=== PATIENT | female | born 1950 | race Caucasian/White ===

== ENCOUNTER 2025-04-21 14:01 | Outpatient (AMB) | payer MEDICARE, SELFPAY ==
[2025-04-21 14:22] VITALS: BMI 28.3
--- NOTE | 2025-04-21 14:22 | HO.SPINEOV ---
Vital Signs 04/21/25 14:22 Height 5 ft 3 in Weight 160 lb BMI 28.3 Intake Visit Reasons: spinal stenosis Intake Note: Mrs. Healy is here today c/o Low back pain. [employer] Required: No Allergies No Known Allergies Allergy (Verified 04/21/25 14:23) Physical Exam Vital Signs: BMI result Body Mass Index 28.3 Assessment & Plan Assessment & Plan (1) Lumbar stenosis: Code(s): M48.061 - Spinal stenosis, lumbar region without neurogenic claudication Category: Medical Plan Dear Dr Julieth Romero, Thank you for referring Mrs Healy to our office today. She is a very nice 75-year-old female history of osteoporosis, who presents today for evaluation of a lower lumbar sacral pain which radiates out to her hips and down toward her tailbone. The pain is aggravated when going from a sitting to a standing position, or walking for any distance it will make her have to stop and sit down. She has not have any specific radicular pain into the hamstrings, calves or thighs but it is very mechanical in nature with standing and bearing weight, and improves when she sits. She walks a trail and she will have to coordinate where she is going to sit down because after a number of minutes the pain will become intense in forced her to get off her feet. She started physical therapy and ultimately went for few months but did not see any significant improvement. She has been doing injections with Dr. Upton for many years. These have become less effective. From the [facility] records it looks like he has been doing bilateral L4 TFE's. She has taken anti-inflammatories, Tylenol, and even oxycodone. She does not want to be on medication. This is very frustrating to her. She has had an MRI done at [facility] showing severe stenosis at L4-5 amongst other things and was sent today to see us for an evaluation. PMH: She is reasonably healthy for her age, history of osteoporosis, vertigo, an episode of transient global amnesia at 1 point and a left knee replacement. But other than that no systemic disease in the cardiopulmonary, liver, renal, coagulopathies, endocrine system etc.. No major abdominal surgeries. Social hx: She has not smoke, drink use any recreational drugs Medications: Celebrex Allergies: None Physical exam: Awake alert oriented no acute distress, she is able to stand and walk, slightly unsteady on her feet, strength normal, absent patellar reflexes in the left side where she had a knee replacement but otherwise reflexes are normal Imaging review: Lumbar MRI at [facility] shows that she has advanced degenerative disc disease at L2-3, L3-4 and L4-5, with severe stenosis at L4-5. Impression: 75-year-old female presents for issues with low back pain radiating down into her lumbosacral area, into her hips, associated with standing, bending or walking for any length of time. When she gets on her feet too long she will have to sit down the make the symptoms go away. She has been treated conservatively as above and the only thing that worked were injections done by Dr. Upton, by the records it looks like she had L4 TFE done multiple times and the last few just seemed to stop working. Previous to that they were helping her out quite a bit. Because of the claudicating component, I think her symptoms are coming from the L4-5 stenosis. I am going to get a set of standing flexion-extension x-rays just to rule out any instability given the pain that does come with bending at the waist. I think Dr. King would offer her an L4-5 decompression with the understanding that it will likely significantly help her symptoms, but she does have degenerative disc disease from L2-L5 as well and that could be contributing somewhat to her back pain. Because of her osteoporosis, I am not sure if he would consider a fusion. If we could do something less invasive for her that would give her improvement in her walking I think she would find that a reasonable outcome. Once I have a chance to review everything with Dr. King I will get back to the patient with a final plan. She does have a trip coming up to [facility] and has used steroids in the past to get through the vacation and allow her to walk. I called a prescription for Medrol Dosepak for her. She is on omeprazole for PPI prophylaxis. Thank you for allowing us to care for your patient. The total time spent with this visit with this patient was 45 minutes reviewing history, physical exam, lumbar imaging review, and implementation of treatment plan or further diagnostic testing Gerard King MD,PhD [facility] Orders: Orders XR lumbar spine 4V min Today M48.061 - Spinal stenosis, lumbar region without neurogenic claudication Medications: New methylprednisolone medrol dose pack, take as directed on package 4 mg PO DAILY 21 ea 0RF Coding Level of Care Code New Pt Level 4 (42960) Diagnoses Lumbar stenosis M48.061
== END 2025-04-21 15:28 | disposition home or self-care (01) ==
LOC: HO.HNS 14:02
PROVIDERS: PCP Internal Medicine; Referring Provider Internal Medicine; Visit Provider Physician Assistant
DX: M48.061 Spinal stenosis, lumbar region without neurogenic claudication (principal)
CPT/HCPCS: 99204

== ENCOUNTER 2025-04-21 14:01 | Outpatient (REF) | payer MEDICARE, SELFPAY ==
--- NOTE | ~2025-04-21 | XR_ITS ---
CLINICAL HISTORY: M48.061 - Spinal stenosis, lumbar region without neurogenic claudication --- Additional Notes or Special Instructions: standing, a p, lateral with flex ext views 4 views lumbar spine Comparison: None Findings: 5 nonrib-bearing lumbar type vertebral bodies. Mild levoconvex curvature of the lumbar spine, no spondylolisthesis or dislocation. No abnormal motion on the flexion or extension view. No acute fracture. Multilevel vertebral osteophytes, mild disc height loss L1-2 to L4-5. Facet arthrosis L4-5 and L5-S1. Sacroiliac joints are unremarkable. Visualized abdomen and pelvis demonstrate nothing unusual. Impression: 1. Lumbar spine degenerative spondylosis. This document has been electronically signed by: Radha Edwards MD on 04/22/2025 14:11:39
== END 2025-04-21 14:02 | disposition home or self-care (01) ==
LOC: HO.HOSX 14:01
PROVIDERS: PCP Internal Medicine; Referring Provider Internal Medicine; Visit Provider Physician Assistant
DX: M48.061 Spinal stenosis, lumbar region without neurogenic claudication (principal)
CPT/HCPCS: 72110; 99202

== ENCOUNTER → 2025-04-21 15:02 | Outpatient (BNV) | payer MEDICARE, SELFPAY | PROVIDERS: PCP Internal Medicine; Referring Provider Internal Medicine; Visit Provider Radiology Diagnostic Radiology | DX: M48.061 Spinal stenosis, lumbar region without neurogenic claudication (principal); M47.816 Spondylosis without myelopathy or radiculopathy, lumbar region | CPT/HCPCS: 72110 ==

== ENCOUNTER 2025-06-11 14:57 | Outpatient (AMB) | payer MEDICARE, SELFPAY ==
--- NOTE | 2025-06-11 14:59 | A.SPINEOV_ITS ---
Intake Visit Reasons: Meet Dr.P SMITH 06/19 & questions regarding recovery Intake Note: Ms. Healy is here today to Discuss Surgery and Meet Dr. King. Business Services Associate Required: No Allergies tolterodine Allergy (Verified 06/11/25 15:00) Unknown zolpidem Allergy (Verified 06/11/25 15:00) Unknown Assessment & Plan Assessment & Plan (1) Lumbar stenosis: Code(s): M48.061 - Spinal stenosis, lumbar region without neurogenic claudication Category: Medical Plan On 06/11/2025, I saw for preoperative visit Nadine Healy to discuss her upcoming L4-5 decompression. She had additional questions about the surgery and expected postoperative recovery. All questions were answered satisfactorily. Answering questions. Kelvin King MD, PhD Spine Fellowship Trained Neurosurgeon Director, [facility] Coding Level of Care Code Est Pt Level 2 (89040) Diagnoses Lumbar stenosis M48.061
--- OUTSIDE RECORDS SUMMARY | 2025-06-11 18:18 | XMS_ITS | Data Portability ---
Author Organization 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 She also has an early diagnosis of Dupuytren's or pseudo Dupuytren's disease. Plan: Pathophysiology of each of these problems has been reviewed. Cortisone injection was performed to the CMC joint. She is provided a prescription for modality splint. The patient is ambulatory, but has weakness and/or instability of their extremity which requires stabilization from this semi-rigid/rigid orthosis to improve their function. Verbal and written instructions for their use and application of this item were given. patient was instructed that should the brace result in increased pain, decreased sensation, increased swelling or an overall worsening of their medical condition, to please contact our office immediately. [email or web address] Not available 11/10/2023 17:00:49 Plan of Treatment Reminders Order Date Submit Date Provider Last Modified By Organization Details Last Modified Time Details Appointments None record ed. Lab ESR (eryth rocyte sedime ntatio n rate), blood - LTKR, ? Infect ion 2024 025 [email or web address] [facility] (Centralized Electronic Ordering - All Locations), Patient Can Go To The Location Of Their Choice, [id number] 11:04:06 C reacti ve protei n, QN, serum or plasma - LTKR, ? Infect ion 2024 025 [email or web address] [facility] (Centralized Electronic Ordering - All Locations), Patient Can Go To The Location Of Their Choice, [address] 5 11:04:06 CBC w/ auto diff - LTKR, ? Infect ion 2024 025 [email or web address] [facility] (Centralized Electronic Ordering - All Locations), Patient Can Go To The Location Of Their Choice, [id number] 5 11:04:06 Referral None record ed. Procedures None record ed. Surgeries None record ed. Imaging XR, knee, 3 view - LTKR 2022, Se , room 116 2024 025 [email or web address] [facility], [address], [address], [place], [address], 5 11:04:06 XR, hand, 3 or more view - 3 views right hand to includ e wrist room 113 2023 024 [email or web address] Not available 4 13:13:21 XR, hand, 3 or more view - 3views right hand to includ e wrist [email or web address] [facility], [address], [address], [place], [address], 4 14:12:17 Medication Orders None record ed. Patient TargetsNo targets recorded. Patient InstructionsNo instructions recorded. Reason for Referral None Reported. Results Created Date Observation Date Name Description Value Unit Range Abnormal Flag Note LastModifiedBy Organization Detail LastModifiedTime 03/30/20 24 12/28/2021 imagi ng/di agnos tic resul t No observ ation record ed. [email or web address] Not Available 03/02 03:57:56 03/30/20 24 02/09/2022 imagi ng/di agnos tic resul t No observ ation record ed. [email or web address] Not Available 03/02 03:58:02 03/30/20 24 05/30/2023 imagi ng/di agnos tic resul t No observ ation record ed. [email or web address] Not Available 03/02 03:58:35 03/30/20 24 12/19/2018 imagi ng/di agnos tic resul t No observ ation record ed. [email or web address] Not Available 03/02 03:59:33 02/07/20 25 02/06/2025 XR, knee, 3 view [email or web address] ?Encry pted=s hAaTro YD8dLq bEUv6g %2BXZw aYqtaq 0bqfl% 2Fg9IQ a4ajBk vP9nXo QUaueC m3YtLR FvZlgJ JJ8mAn HZtai3 2n4624 AC0Kla XiAUae uKiQtr MwF INTERFACE [facility] [address] [facility] [address], [address], 02/06/2025 14:22:15 02/07/20 25 02/06/2025 XR, knee, 3 view [email or web address] ?Encry pted=s hAaTro YD8dLq bEUv6g %2BXZw aYqtaq 0bqfl% 2Fg9IQ a4ajBk vP9nXo QUaueC m3YtLR FvZlgJ JJ8mAn HZtai3 9h8798 AC0Kla XiAUae uKiQtr MwF INTERFACE [facility] [address] [facility] [address], [place], [address], 02/06/2025 14:22:17 Result Notes Documentation Provider Name and Address Organization Details Recorded Time Xr, Knee, 3 View : [email or web address] Encrypted=laMrVgvTR0pEcoZ Uv6g%5HOVxiOpdzb1poup%2Fg 3EXo3vxFdxW5lHpCBrvhIs5Yz MDQvTddAGH4eQrXUdet36i238 2QA2CyrLeYVhxyJlJqaTmV Not Available [facility] 02/06/2025 14:22: 16 Xr, Knee, 3 View : [email or web address] Encrypted=grSqPpfQX3cZrbA Uv6g%6JXXcxOpczl8ujam%2Fg 9IPj6xhBeiH7sJgFCfjcOk0Tj BJHcOcgKBJ5oOcUEoxl66x515 7TK8ApkIwODgvnAbLegVzJ Not Available [facility] 02/06/2025 14:22: 18 Problems Name Problem SNOMED Code Status Onset Date Resolution Date Notes Provider Name and Address Organization Details Recorded Time No complaints 876273769 Active Status : 'A'; Not Available [facility] 4 09:20:46 Pain of knee region 2120347718 Active 2024 Suellen Landis PA-C [address], [place], [address] , [facility] 5 14:55:57 Problem Notes None recorded. Procedures Surgical History Date Name Laterality Status Provider Name and Address Organization Details Recorded Time 4 Wrist Joint Kenalog Injection, L/R completed Chacha Kennedy MD [address], [place], [address], [facility] 11/10/2023 16:59:48 Imaging Results None recorded. Procedure Notes None recorded. Medical Equipment None Reported. Allergies No known drug allergies Medications Name Sig Start Date Stop Date Status Note LastModified by Organization Details LastModified Time celecoxib 200 mg capsule TAKE 1 CAPSULE BY MOUTH EVERY DAY active Not Available Not Available No t Available amoxicillin 500 mg capsule TAKE 4 CAPSULES BY MOUTH 1 HOUR BEFORE DENTAL APPOINTMENT active Not Available Not Available Not Available latanoprost 0.005 % eye drops INSTILL 1 DROP INTO LEFT EYE AT SUPPERTIME active Not Available Not Available N ot Available ammonium lactate 12 % lotion APPLY TO ARMS AND LEGS AFTER SHOWER 1-2 TIMES A DAY active Not Available Not Available Not Available citalopram 40 mg tablet active Not Available Not Available Not Available trazodone 50 mg tablet TAKE 1/2 TO 1 TABLET BY MOUTH AT BEDTIME NEEDED FOR SLEEP active Not Available Not Available No t Available ibuprofen 800 mg tablet TAKE 1 TABLET BY MOUTH EVERY 6 - 8 HOURS NEEDED FOR PAIN. MAX OF 3200MG IBUPROFEN PER DAY. active Not Available Not Available No t Available fluconazole 150 mg tablet TAKE 1 TABLET BY MOUTH EVERY DAY SHELLY YEAST INFECTION WHEN SYMPTOMS PRESENT active Not Available Not Available No t Available citalopram 10 mg tablet TAKE 1 TABLET BY MOUTH DAILY active Not Available Not Available Not Available senna 8.6 mg tablet TAKE 1 TABLET BY MOUTH TWICE DAILY active Not Available Not Available No t Available meloxicam 15 mg tablet TAKE 1 TABLET BY MOUTH EVERY DAY active Not Available Not Available No t Available metronidazol e 0.75 % (37.5 mg/5 gram) vaginal gel INSERT 1 APPLICATORF UL VAGINALLY EVERY DAY AT BEDTIME FOR 5 DAYS active Not Available Not Available N ot Available ondansetron HCl 4 mg tablet TAKE 1 TABLET BY MOUTH EVERY 8 HOURS NEEDED FOR NAUSEA OR VOMITING active Not Available Not Available No t Available doxepin 10 mg capsule TAKE 1 CAPSULE BY MOUTH EVERY NIGHT AT BEDTIME active Not Available Not Available No t Available ciprofloxaci n 500 mg tablet TAKE 1 TABLET BY MOUTH TWICE DAILY FOR 10 DAYS active Not Available Not Available No t Available tramadol 50 mg tablet TAKE 1 TABLET BY MOUTH FOUR TIMES DAILY FOR 7 DAYS active Not Available Not Available N ot Available ketorolac 0.5 % eye drops INSTILL 1 DROP IN OPERATIVE EYE TWICE DAILY STARTING AFTER SURGERY active Not Available Not Available No t Available oxycodone-ac etaminophen 5 mg-325 mg tablet TAKE 1 TAB(S) ORALLY EVERY 6 HOURS active Not Available Not Available No t Available calcium 600 mg (as calcium carbonate 1,500 mg) tablet TAKE 1 TABLET BY MOUTH TWICE DAILY active Not Available Not Available No t Available hydromorphon e 2 mg tablet TAKE 1 TABLET BY MOUTH EVERY 6 HOURS NEEDED FOR PAIN active Not Available Not Available No t Available lorazepam 0.5 mg tablet TAKE 1 TABLET BY MOUTH TWICE DAILY NEEDED FOR ANXIETY active Not Available Not Available No t Available aspirin 325 mg tablet,delay ed release active Not Available Not Available N ot Available pantoprazole 40 mg tablet,delay ed release active Not Available Not Available N ot Available triamcinolon e acetonide 0.025 % topical ointment active Not Available Not Available Not Available docusate sodium 100 mg capsule active Not Available Not Available N ot Available omeprazole 20 mg capsule,judy yed release active Not Available Not Available Not Available montelukast 10 mg tablet TAKE 1 TABLET BY MOUTH AT BEDTIME active Not Available Not Available No t Available hydroxyzine HCl 25 mg tablet TAKE 1 TABLET BY MOUTH EVERY NIGHT AT BEDTIME NEEDED FOR ITCHING active Not Available Not Available No t Available ergocalcifer ol (vitamin D2) 1,250 mcg (50,000 unit) capsule TAKE 1 CAPSULE BY MOUTH 1 TIME A WEEK FOR 12 WEEKS active Not Available Not Available No t Available diazepam 10 mg tablet TAKE 1 TABLET BY MOUTH 1 HOUR BEFORE PROCEDURE DIRECTED. AVOID DRIVING / OPERATING HEAVY MACHINERY active Not Available Not Available No t Available polyethylene glycol 3350 17 gram/dose oral powder active Not Available Not Available Not Available estradiol 0.01% (0.1 mg/gram) vaginal cream USE 1 GRAM INTRAVAGINA LLY 2 TIMES A WEEK active Not Available Not Available No t Available ondansetron 4 mg disintegrati ng tablet DISSOLVE 1 TABLET ON THE TONGUE EVERY 8 HOURS NEEDED FOR NAUSEA active Not Available Not Available No t Available fluticasone propionate 50 mcg/actuatio n nasal spray,suspen vidhya SHAKE LIQUID AND USE 2 SPRAYS IN EACH NOSTRIL TWICE DAILY NEEDED FOR RHINITIS active Not Available Not Available No t Available diazepam 5 mg tablet TAKE 1-2 TABLETS BY MOUTH 1 HOUR PRIOR TO PROCEDURE active Not Available Not Available No t Available amoxicillin 875 mg-potassium clavulanate 125 mg tablet TAKE 1 TABLET BY MOUTH EVERY 12 HOURS UNTIL FINISHED. active Not Available Not Available No t Available oxycodone 5 mg tablet TAKE 1 TO 2 TABLETS BY MOUTH EVERY 4 HOURS NEEDED FOR SEVERE PAIN active Not Available Not Available Not Available cyclobenzapr ine 5 mg tablet TAKE 1 TABLET BY MOUTH THREE TIMES DAILY NEEDED FOR MUSCLE SPASMS active Not Available Not Available No t Available bupropion HCl XL 150 mg 24 hr tablet, extended release TAKE 1 TABLET BY MOUTH EVERY MORNING active Not Available Not Available No t Available nitrofuranto in monohydrate/ macrocrystal s 100 mg capsule TAKE 1 CAPSULE BY MOUTH TWICE DAILY active Not Available Not Available No t Available lactulose 10 gram/15 mL oral solution TAKE 15 TO 30 ML BY MOUTH DAILY WITH BREAKFAST active Not Available Not Available No t Available cholecalcife rol (vitamin D3) 25 mcg (1,000 unit) tablet TAKE 1 TABLET BY MOUTH DAILY active Not Available Not Available Not Available cholecalcife rol (vitamin D3) 50 mcg (2,000 unit) tablet TAKE 1 TABLET BY MOUTH DAILY active Not Available Not Available Not Available Paxlovid 300 mg (150 mg x 2)-100 mg tablets in a dose pack TK 2 NIRMATRELVI R TS AND 1 RITONAVIR T TOGETHER PO TWICE DAILY FOR 5 DAYS active Not Available Not Available N ot Available Vitals Date Recorded Body height Body mass index (BMI) Body weight Provider Name and Address Organization Details Last Updated DateTime 11/10/2023 158.75 cm 30.2 kg/m2 58969.52 g GERARDO MERVATSAUL [facility] 11/10/2023 13:07:07 Date Recorded Body height Body mass index (BMI) Body weight Provider Name and Address Organization Details Last Updated DateTime 02/06/2025 160.02 cm 29.8 kg/m2 33873.52 g APRIL DENNIS [facility] 02/06/2025 14:12:49 Social History None recorded. Functional Status None recorded. Mental Status None recorded. Family History Nothing Reported. Medical History No medical history recorded. Gynecological HistoryNo gynecological history recorded. 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 Discussed that I do not appreciate any cause or concern for infection however we will obtain infectious lab work to rule out any low-lying infection. Her radiograph s look great. The knee itself is stable on exam. Discussed unfortunat esvin do not have an obvious sign of what would be causing her symptoms. She is very active and continues with her home therapy program. Encouraged continued use of low impact strength building exercises such as stationary biking, leg press, rowing or swimming. Did also recommend topical antiinflam matory compound cream with Voltaren gel which she can apply up to 4 times daily. She takes Celebrex and does not find this particular ly helpful. She also takes Tylenol which is not helpful. Discussed utility of lidocaine patches, Salonpas, CBD creams or other over-the-c ounter remedies. Ultimately we elected to refer her for geniculate nerve block for added symptomati c relief of her sensory nerve pain to the knee. Referral will be sent to Dr. Pereyra for which she is already establishe d with. This will hopefully help to alleviate her toothache type pain to the knee. Fortunatel y I do not see any structural issues with the knee itself. She is agreeable to this. All questions and concerns were addressed and answered. Pain of knee region 1003 229389 M25.562 G89.29 [id number] Health Concerns Section Related Observation LastModified by Organization Detai ls LastModified Time None Recorded Concern Status LastModified by Organization Details LastModified Time None Recorded Advance Directives Directive None Recorded Payers Insurance Date Sequence Insurance Name Policy Number Policy Gaytan Covered Member ID Gaytan Member ID Guarantor Name 02/06/2025 1 [place] [employer] Nadine V Awand [id number] Nadine Awand 02/17/2025 2 [place] [id number] Nadine Awand [id number] Nadine Awand 02/06/2025 [employer] - SPECIALITY CLAIMS (MEDICARE DME REGION A) Nadine V Awand [id number] Nadine Awand Notes Date Note Type Note Provider Name and Address Organization Details Recorded Time 11/10/2023 text/html ROS as noted in the HPI pt is a 73 yo female seen in f/u for R wrist pain. known to me having undergone a previous ORIF R DR flynn 12/20. 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 She is also noted some thickenings in her palm. She has pain with pinching motorcoach operator activities. Chacha Kennedy MD [address], [place], [address], [facility] 11/10/2023 17:01:53 02/06/2025 text/html ROS as noted in the HPI I am seeing the patient under the general supervision of Dr. Mendoza who was available but who did not see the patient. HPI:The patient presents today for evaluation of new onset of left knee pain. They are 2 years status post left total knee arthroplasty by Dr. Saez in 2022. No new fall, trauma or injury. Patient reports pain that has essentially been ongoing since surgery. She states that she expected pain after the surgery for the first year but now that she is 2 years out she continues to complain of increased pain with increased activity to the left knee. Denies any new fall, trauma or injury. No recent illness or dental work. No fevers or chills. No redness or warmth. Describes a global aching pain which she describes as a toothache which is worse with increased activity such as prolonged ambulation, going up and down stairs. She states that pain wakes her at night on a regular basis. She states that none of her friends who had the same surgery have this issue. She is active and continues with her physical therapy program at home and does go to the gym on a regular basis. Labs: were not obtained Diagnostic Imagin views left knee X-rays ordered, obtained and reviewed today at [facility]: reveal maintained alignment of the prosthetic components, No fracture or dislocation . Excellent interface. No interval change compared to previous radiographs. No evidence of asymmetric polyethylene wear. Suellen Landis PA-C [address], [place], [address], [facility] 02/18/2025 09:09:51 OBGyn Episode No OBEpisode recorded.
--- OUTSIDE RECORDS SUMMARY | 2025-06-11 18:18 | XMS_ITS | Clinical Summary ---
Author Organization [facility] Address [address] [place] [address] Care Team Providers Care Cosmetic Sales Assistant Name Role Phone Kenzie Leyva MD Primary [...] 0 07/14/2023 Active ergocalciferol (VITAMIN D2) capsule 86004 units TAKE 1 CAPSULE BY MOUTH 1 [...] Ruiz, and sees therapist Frantz Garza in [place] Fatigue 03/10/2008 07/17/2023 Anxiety state 01/27/2006 07/17/2023 [...] age to complete this topic Care Teams Cosmetic Sales Assistant Relationship Specialty Start Date End Date Kenzie Leyva MD PCP - General Internal Medicine 09/02/19
--- OUTSIDE RECORDS SUMMARY | 2025-06-11 18:18 | XMS_ITS | Clinical Summary ---
Author Organization [facility] Address [address] [place] [address] Care Team Providers Care Lumber Driver Name Role Phone Margaret Huerta MD Primary Care Pr ovider Allergies No known active allergies Medications PANTOprazole (PROTONIX) 40 MG EC tablet Active senna (Senna-Time) 8.6 MG Tab tablet Take 1 tablet by mouth 2 times a day. Active OMEprazole (PriLOSEC) 20 MG capsule Take 1 capsule by mouth daily. 04/09/2024 Active citalopram (CeleXA) 40 MG tablet 06/21/2023 Active cholecalciferol (D3-50) 65660 units capsule Take 50,000 Units by mouth. [...] topic Insurance MEDICARE PART A & B [place] [id number] MEDICARE PART A [place] [id number] Care Teams Lumber Driver Relationship Specialty Start Date End Date Margaret Huerta MD PCP - General
== END 2025-06-11 15:31 | disposition home or self-care (01) ==
LOC: HO.HNS 14:57
PROVIDERS: PCP Internal Medicine; Visit Provider Neurological Surgery
DX: M48.061 Spinal stenosis, lumbar region without neurogenic claudication (principal)
CPT/HCPCS: 99212

== ENCOUNTER → 2025-06-11 14:57 | Outpatient (BNVA) | payer MEDICARE, SELFPAY | PROVIDERS: PCP Internal Medicine; Visit Provider Neurological Surgery | DX: M54.50 Low back pain, unspecified (principal); M48.061 Spinal stenosis, lumbar region without neurogenic claudication; Z01.818 Encounter for other preprocedural examination | CPT/HCPCS: 99212 ==

== ENCOUNTER 2025-06-19 06:52 | Day surgery (SDC) | payer MEDICARE, SELFPAY ==
--- OUTSIDE RECORDS SUMMARY | 2025-05-23 12:28 | XMS_ITS | Clinical Summary ---
Author Organization [facility] Address [address] [place] [address] Care Team Providers Care Hospice Admitting Clerk Name Role Phone Kenzie Leyva MD Primary Care Provider Unavailabl e Allergies No known active allergies Medications Medication Sig Dispensed Refills Start Date End Date Status amoxicillin (AMOXIL) 500 MG capsule Take 4 capsules (2,000 mg total) by mouth. 1 hour before dental appointment 0 06/29/2023 Active citalopram (CeleXA) 40 MG tablet 0 06/21/2023 Active Calcium Carbonate 1500 (600 Ca) MG TABS Take 1 tablet by mouth 2 (two) times a day. 0 07/14/2023 Active ergocalciferol (VITAMIN D2) capsule 75376 units TAKE 1 CAPSULE BY MOUTH 1 TIME A WEEK FOR 4 WEEKS 0 06/26/2023 Active cyanocobalamin (VITAMIN B12) 1000 MCG/ML injection Inject 1 mL (1,000 mcg total) into the muscle. 0 06/26/2023 Active LORazepam (ATIVAN) 0.5 MG tablet TAKE 1 TABLET BY MOUTH EVERY DAY 0 12/27/2022 Active Active Problems Problem Noted Date Diagnosed Date Osteoporosis 07/14/2023 Heartburn 06/03/2019 07/17/2023 Overview: New onset heartburn. Cardiac risk factors: obesity. Normal stress echocardiogram with no evidence of ischemia; Normal exercise EKG, and normal hemodynamic response to exercise. 04/2019 Diverticulitis of colon without hemorrhage 05/2307/17/2023 Overview: Incidental finding at colonoscopy 05/23/2008. Depression 03/10/2008 07/17/2023 Overview: Dr Ruiz, and sees therapist Frantz Garza in [place] Fatigue 03/10/2008 07/17/2023 Anxiety state 01/27/2006 07/17/2023 Family History Medical History Relation Name Comments Hypertension Father Diabetes Mother Hypertension Sister Relation Name Status Comments Father Mother Sister Social History Tobacco Use Types Packs/Day Years Used Date Smoking Tobacco: Never Smokeless Tobacco: Never Tobacco Cessation:Counseling Given: Not Answered Alcohol Use Standard Drinks/Week Comments No 0 (1 standard drink = 0.6 oz pur e alcohol) Sex and Gender Information Value Date Recorded Sex Assigned at Not on file Gender Identity Not on file Sexual Orientation Not on file Job Start Date Occupation Industry Not on file Not on file Not on file Last Filed Vital Signs Vital Sign Reading Time Taken Comments Blood Pressure 136/92 07/17/2023 3:13 PM EST Pulse 78 07/17/2023 3:13 PM EST Temperature 36.2 C (97.2 F) 07/17/2023 3:13 PM EST Respiratory Rate 18 07/17/2023 3:13 PM EST Oxygen Saturation 98% 07/17/2023 3:13 PM EST Inhaled Oxygen Concentration - - Weight 81.6 kg (180 lb) 09/16/2019 1:00 PM EST Height 160 cm (5' 3 ) 09/16/2019 1:00 PM EST Body Mass Index 31.89 09/16/2019 1:00 PM EST Plan of Treatment Health Maintenance Due Date Last Done Comments Hepatitis C Screening 1950 COVID-19 Vaccine (#1) 1950 Depression Screening 1962 BMI Counseling 1968 Preventative Health Evaluation 1968 Colon Cancer Screening (Colonoscopy) 1995 Shingrix-Zoster Vaccine (1 of 2) 2000 Fall Risk Assessment 2015 Osteoporosis Screening (DEXA Scan) 2015 Influenza Vaccine (#1) 2025 3, 04/30/2022, 06/14/2021, Additional history exists RSV Adult > 60+ Yrs or (1 - 1-dose 75+ series) 2025 DTap / Tdap / Td (2 - Td or Tdap) 09/22/2025 09/22/2015 Pneumococcal Vaccine Completed 03/09/2020, 09/22/19 16 Hepatitis B Vaccines Aged Out No long er eligible based on patient's age to complete this topic RSV Ped < 20 months Aged Out No longe r eligible based on patient's age to complete this topic Care Teams Hospice Admitting Clerk Relationship Specialty Start Date End Date Kenzie Leyva MD PCP - General Internal Medicine 09/02/19
--- OUTSIDE RECORDS SUMMARY | 2025-05-23 12:28 | XMS_ITS | Clinical Summary ---
Author Organization [facility] [address] [facility] lding Address [address] [place] [address] Phone Care Team Providers Care Chain Sales Consultant Name Role Phone Margaret Huerta MD Primary Care Prov ider Allergies Active Allergy Reactions Criticality Noted Date Comments Tolterodine Tartrate Other 01/12/2011 Detrol Pt could not tolerate side affects, did not work Zolpidem Other 01/12/2011 Ambien Memory loss and forgetfulness Medications calcium carbonate 1,500 mg (600 mg elemental calcium) tablet TAKE 1 TABLET BY MOUTH TWICE DAILY 4 Active celecoxib (CeleBREX) 200 mg capsule Take 1 capsule (200 mg total) by mouth 1 (one) time each day. 3 Active citalopram (CeleXA) 40 mg tablet Take 0.5 tablets (20 mg total) by mouth 1 (one) time each day. 5 Active fluticasone propionate (FLONASE) 50 mcg/actuation nasal spray 2 Sprays by Each Nare route 2 times daily as needed for Rhinitis. 4 Active zoledronic acid (RECLAST) 5 mg/100 mL piggyback Inject 5 mg into the vein Once. 3 Active traMADoL (ULTRAM) 50 mg tablet Take 1 Tablet by mouth every 8 hours as needed for Pain. 4 Active semaglutide (Wegovy) 0.25 mg/0.5 mL injection pen Inject 0.25 mg under the skin every 7 (seven) days. 5 Active omeprazole (PriLOSEC) [address] capsule TAKE 1 CAPSULE DAILY 90 capsule 1 5 Active lactulose (CHRONULAC) solutionIndicatio ns:Constipation, unspecified constipation type Take 15 mL (10 g total) by mouth 2 (two) times a day. 900 mL 2 5 07/09/20 25 Active montelukast (SINGULAIR) 10 mg tabletIndications :Allergy, subsequent encounter Take 1 tablet (10 mg total) by mouth at bedtime. 90 each 1 5 10/08/19 26 Active cholecalciferol (VITAMIN D-3) 50 mcg (2,000 unit) tablet Take 1 tablet (2,000 Units total) by mouth 1 (one) time each day. Active docusate sodium (COLACE) 100 mg capsule Take 1 capsule (100 mg total) by mouth 2 (two) times a day if needed for constipation . Active doxepin (SINEquan) 10 mg capsule Take 1 capsule (10 mg total) by mouth at bedtime as needed for sleep. Active hydrOXYzine HCL (ATARAX) 25 mg tablet TAKE 1 TABLET BY MOUTH EVERY NIGHT AT BEDTIME NEEDED FOR ITCHING Active ondansetron (ZOFRAN) 4 mg tabletIndications :Nausea Take 1 tablet (4 mg total) by mouth every 8 (eight) hours if needed for nausea or vomiting. 20 tablet 2 5 05/10/20 25 Hospital, Clinic, or Other Facility Administered Medication Ordered Dose Route Frequency Start Date End Date Status cyanocobalamin (VITAMIN B-12) injection 1,000 mcgIndications:B12 deficiency 1000 mcg IM Every 30 days 01/10/2025 Active Active Problems Problem Noted Date Diagnosed Date Irritable bowel syndrome with constipation 05/08 Vertigo 04/10/2025 Insomnia 05/22/2024 COVID-19 virus infection 08/08/2023 Overview (05/22/2024): 07/2023 Heartburn 06/03/2019 Overview (05/22/2024): New onset heartburn. Cardiac risk factors: obesity. Normal stress echocardiogram with no evidence of ischemia; Normal exercise EKG, and normal hemodynamic response to exercise. 04/2019 Obesity (BMI 30-39.9) 06/03/2019 TIA (transient ischemic attack) 09/09/2011 Overview (05/22/2024): Hand weakness, paresthesias 08/2011, neg carotid U/S, neg MRI for acute findings but possible old lacunar infarct, neg echo,neg ct scan of brain at [facility] Urinary incontinence 01/12/2011 Overview (05/22/2024): With urgency. [facility] on 03/28/11. Bladder scan pending. F/u in 3 mo. Diverticulitis of colon without hemorrhage 05/23 Overview (05/22/2024): Diverticulosis of colon (without mention of hemorrhage) Incidental finding at colonoscopy 05/23/2008. Osteopenia 05/21/2008 Overview (05/22/2024): Spine, bone density 05/07, jake tesfaye. Obstructive sleep apnea 04/21/2008 Overview (05/22/2024): Repeat study 11/28/16 demonstrating TREY and recommending BIP AP 18/12 cm water with heated humidifier, patient sees Dr. Schmidt previously on Nasal CPAP 5cm, Sleep study 04/07 Dr Blevins [phone] Degeneration of lumbar intervertebral disc 03/10 Overview (05/22/2024): Intermittent sciatica, L4-5 on MRI by hx, had injection. Sees mao, getting L4-5 epidural injections a [facility] pain management Depression 03/10/2008 Overview (05/22/2024): Dr Ruiz, and sees therapist Frantz Garza in [place] Fatigue 03/10/2008 Anxiety state 01/27/2006 Overview (05/22/2024): unspecified Encounters Date Type Department Care Team Description 05/08/2025 1:00 PM EDT Consult Gastroenterology - [place] [address] [facility] [address] [facility] [address] [place] [phone] Will Vega MD Irritable bowel syndrome with constipation (Primary Dx); Nausea 04/25/2025 Telephone Adult [facility] [address] [place] [address] Margaret Lazar MD 04/25/2025 [facility]phone [facility] [address] [place] [address] Margaret Lazar MD 04/10/2025 10:30 AM EDT Office Visit [address] [phone] Margaret Lazar MD Vertigo (Primary Dx); Constipation, unspecified constipation type; Allergy, subsequent encounter; Nausea; MCI (mild cognitive impairment); Degeneration of intervertebral disc of lumbar region with discogenic back pain and lower extremity pain 04/08/2025 6:46 PM EDT - 04/08/2025 11:59 PM EDT Hospital Encounter [facility] [address] [place] [phone] Radiculopathy; Spinal stenosis Discharge Disposition: Home or Self Care 04/02/2025 Telephone Adult [address] [phone] Margaret Lazar MD 03/28/2025 [facility]phone [facility] [address] [place] [address] Gerard Loaiza PA 03/27/2025 [facility]phone [facility] [address] [place] [address] Margaret Lazar MD 03/14/2025 1:00 PM EDT Clinical Support [address] [phone] Dalila Javier [place] B12 deficiency (Primary Dx) from Last 3 Months Immunizations Immunization Administration Dates Next Due Influenza trivalent, 0.5mL ( Fluad) 65yo and older 06/21/2023,04/30/2022,06/14/2021,04/23,05/13/2016 Influenza trivalent, 0.5mL, preservative free (Fluarix; FluLaval; Fluzone) ages 6mo and older (Afluria) 3 years and older 05/30/2017,06/21/2010,05/14/2008 Moderna SARS-CoV-2 COVID-19, mRNA, LNP-S, preservative free 06/14/2021 Pneumococcal conjugate 13 va lent (Prevnar 13, PCV13) 2mo and older 03/09/2020 Pneumococcal polysaccharide 23 valent (Pneumovax 23) 2yo and older 09/22/2015 Td, Unspecified 09/08/2001 Tdap Tetanus diptheria acell ular pertussis (Boostrix; Adacel) 7yo and older 09/22/2015 Surgical History Surgery Date Site/Laterality Comments TONSILLECTOMY PROCEDURE: HISTORICAL TONSILLECTOMY COLONOSCOPY 05/23/2008 PROCEDURE: HISTORICAL COLONOSCOPY; COMMENT: diverticulosis OTHER SURGICAL HISTORY 2008 PROCEDURE: MI OPEN TX DISTAL FIBULAR FRACTURE LAT MALLEOLUS; COMMENT: left - X 2 TOTAL KNEE ARTHROPLASTY Right Medical History Medical History Date Comments Diverticulosis of colon (wit hout mention of hemorrhage) 05/23/2008 DX:Diverticulosis of colon ( without mention of hemorrhage); COMMENT: Incidental finding at colonoscopy 05/23/2008. Family history of colon cancer 03/10/2008 D X:Family history of colon cancer; COMMENT: Maternal grandmother with colon cancer diagnosis age older than 70 years old. Family history of colonic polyps 05/23/2008 DX:Family history of colonic polyps; COMMENT: Mom with colon polyps at age 58. Negative colonoscopy 05/23/2008, no colon cancer screening needed for 5 years. Fracture of ankle 06/08 DX:Fracture of ankle; COMMENT: left - Degeneration of lumbar inter vertebral disc 03/10/2008 DX:Degeneration of lumbar intervertebral disc Obstructive sleep apnea 04/21/2008 DX:Obstr uctive sleep apnea Insomnia DX:Insomnia Patella fracture DX:Patella frac ture; COMMENT: bilateral, different times GERD (gastroesophageal reflu x disease) Depression Osteoporosis Family History Medical History Relation Name Comments Hypertension Father Stroke Father Heart attack Maternal Grandfather Diabetes Maternal Grandmother Stomach cancer Maternal Grandmother older than 70 Arthritis Mother COPD Mother Colon polyps Mother dx at age 68 Stroke Mother Heart attack Paternal Grandfather Breast cancer Paternal Grandmother ? age Diabetes Paternal Grandmother ? age Arthritis Sister Coronary artery disease Sister Diabetes Sister Hyperlipidemia Sister Hypertension Sister Drug abuse Son Relation Name Status Comments Father (Age 70) CVA, hyper tension, Maternal Grandfather Maternal Grandmother Mother (Age 70) RI or CVA, copd, colon polyp Paternal Grandfather Paternal Grandmother ? age Sister Alive htn Son Social History Tobacco Use Types Packs/Day Years Used Date Smoking Tobacco: Never Smokeless Tobacco: Never Tobacco Cessation:Counseling Given: Not Answered Alcohol Use Standard Drinks/Week Comments Not Currently 0 (1 standard drink = 0.6 oz pur e alcohol) Housing Instability Answer Date Recorde d Are you worried that in the next 2 months you may not have stable housing? No 03/14/2025 Food Access & Nutrition Answer Date Rec orded Do you have access to a vari ety of food including fruits and vegetables? Yes 03/14/2025 Access to Healthcare Answer Date Record ed Within the last 3 months, ho w many times did you visit the emergency department for your medical care? 0 03/14/2025 Health Literacy Answer Date Recorded How often do you need to hav e someone help you when you read instructions, pamphlets, or other written material from your doctor or pharmacy? Never 03/14/2025 Caregiver: How often do you need to have someone help you when you read instructions, pamphlets, or other written material from your doctor or pharmacy? Not on file 03/14/2025 Financial Risk Answer Date Recorded How hard is it for you to pa y for the very basics like food, housing, medical care, and air conditioning / heating? Patient declined 03/14/2025 Transportation Answer Date Recorded Has the lack of transportati on kept you from meetings, work, or from getting things needed for daily living? No Has the lack of transportati on kept you from medical appointments or from getting medications? No 03/14/2025 Social Isolation Answer Date Recorded How often do you feel lonely or isolated from th ose around you? Never 03/14/2025 Food Risk Answer Date Recorded Within the past 12 months we worried whether our food would run out before we got money to buy more. Never true 03/14/2025 Within the past 12 months th e food we bought just didn't last and we didn't have money to get more. Never true 03/14/2025 Dependent Care Answer Date Recorded Do you need help finding or paying for care for your loved ones. For example, child nutrition assistant or elderly care for an older adult? No 03/14/2025 Education Answer Date Recorded Do you think completing more education or training, like finishing a GED, going to college, or learning a trade, would be helpful for you? No 03/14/2025 Employment and Income Answer Date Recor ded During the last four weeks, have you been actively looking for work? No 03/14/2025 Living Situation Answer Date Recorded What is your living situation? Unrecognized valu e 03/14/2025 Interpersonal Safety Answer Date Record ed Physical Abuse Unrecognized value 07/23/2024 Verbal Abuse Unrecognized value 07/23/2024 Comments No Sex and Gender Information Value Date Recorded Sex Assigned at Female 07/18/2024 11:25 AM EST Legal Sex Female 10:21 AM EST Gender Identity Female 07/18/2024 11:25 AM EST Sexual Orientation Straight 07/18/2024 11 :25 AM EST Obstetrics History Last Filed Vital Signs Vital Sign Reading Time Taken Comments Blood Pressure 110/82 05/08/2025 1:07 PM EDT Pulse 70 05/08/2025 1:07 PM EDT Temperature 36.4 C (97.6 F) 04/10/2025 10:37 AM EDT Respiratory Rate 16 07/23/2024 10:12 AM EST Oxygen Saturation 96% 05/08/2025 1:07 PM EDT Inhaled Oxygen Concentration - - Weight 73.5 kg (162 lb) 05/08/2025 1:07 PM EDT Height 160 cm (5' 3 ) 05/08/2025 1:07 PM EDT Body Mass Index 28.7 05/08/2025 1:07 PM EDT Plan of Treatment Health Maintenance Due Date Last Done Comments Zoster Vaccines (1 of 2) 2000 Falls Risk Assessment 07/07/2022 Medicare Annual Wellness Visit 02/25/2025 02/26/2024 Cholesterol Screening (Lipid Panel) 03/09/2025 03/09/2020 Influenza Vaccine (#1) 2025 , 06/21/2023, 05/13/2022, Additional history exists COVID-19 Vaccine ( season) 2025 10/31/2024, 07/14/2023, 05/13/2022, Additional history exists DTaP,Tdap,and Td Vaccines (3 - Td or Tdap) 09/22/2025 09/22/2015, 09/08/2001 Colorectal Cancer Screening: Colonoscopy 11/02/2025 11/03/2015 Social Influencers of Health Screening 03/14/2026 03/14/2025 Osteoporosis Screening (Bone Density Screening) 07/12/2033 07/12/2023, 11/18/2020 Hepatitis C Screening Completed 09/22/2015 Pneumococcal Vaccine: 50+ Years Completed 03/09/2020, 09/22/2015 Breast Cancer Screening Discontinued 11/18/2020 RSV Immunization Adult Patients Completed 07/14/2023 Depression Screening Completed 12/09/2024, 02/26/20 24 HIB Vaccines Aged Out No longer eligi ble based on patient's age to complete this topic HPV Vaccines Aged Out No longer eligi ble based on patient's age to complete this topic Hepatitis A Vaccines Aged Out No long er eligible based on patient's age to complete this topic Hepatitis B Vaccines Aged Out No long er eligible based on patient's age to complete this topic IPV Vaccines Aged Out No longer eligi ble based on patient's age to complete this topic MMR Vaccines Aged Out No longer eligi ble based on patient's age to complete this topic Meningococcal ACWY Vaccine Aged Out N o longer eligible based on patient's age to complete this topic Meningococcal B Vaccine Aged Out No l onger eligible based on patient's age to complete this topic RSV Immunization Patients Under 20 months Aged Out No longer eligible based on patient's age to complete this topic Varicella Vaccines Aged Out No longer eligible based on patient's age to complete this topic Procedures Procedure Name Priority Date/Time Associated Diagnosis Comments EXTERNAL XRAY REPORT 04/21/2025 EXTERNAL XRAY REPORT 04/21/2025 MR LUMBAR SPINE WO CONTRAST Routine 04/08/2025 8:09 PM EDT Radiculopathy Spinal stenosis DEPRESSION SCREENING Routine 02/26/2024 DXA BONE DENSITY STUDY 1+ SITS AXIAL SKEL Routine 07/12/2023 3:15 PM EST Vitamin D deficiency, unspecified Other specified disorders of bone density and structure, unspecified site Personal history of (healed) traumatic fracture SCR MAMMO BI INCL CAD Routine 11/18/2020 2:21 PM EDT Encounter for screening mammogram for malignant neoplasm of breast LIPID PANEL Routine 03/09/2020 COLONOSCOPY Routine 11/03/2015 HEPATITIS C SCREENING Routine 09/22/2015 from Last 3 Months or Most Recently Relevant to Health Maintenance Results * External Xray Report (04/21/2025) Only the most recent of2 resultswithin the time period is included. Anatomical Region Laterality Modality Radiographic Mouna ging us Provider [facility] XR PROCEDURES Final Result * MR Lumbar Spine wo Contrast (04/08/2025 8:09 PM EDT) Anatomical Region Laterality Modality L-spine, Spine Magnetic Resonan ce 04/09/2025 3:49 AM EDT Impressions 04/09/2025 3:58 AM EDT Multilevel lumbar spondylosis, progressed from prior at L2-L3, L4-L5 and L5-S1. -------- FINAL REPORT -------- Dictated By: Kamilla Driver Dictated Date: 04/09/2025 03:49 ET Assigned Physician: Kamilla Driver Reviewed and Electronically Signed By: Kamilla Driver Signed Date: 04/09/2025 03:58 ET Workstation ID: [id number] Transcribed By: Self Edit Transcribed Date: 04/09/2025 03:49 ET Narrative 04/09/2025 3:58 AM EDT INDICATION: Radiculopathy, spinal stenosis COMPARISON: June 2024 TECHNIQUE: Multiplanar, multisequence MRI was performed of the lumbar spine without IV contrast. FINDINGS: Study assumes 5 lumbar type vertebral bodies. Left convex lumbar scoliosis. Vertebral body heights are maintained. Minimal grade 1 retrolisthesis of L1 on L2, L2 on L3, new from 2023 and anterolisthesis of L5 on S1, similar to prior. Conus terminates at L1. Bone marrow signal is heterogeneous with Modic type I changes at L2-L3, L3-L4 and L4-L5. Multilevel anterior marginal osteophytes. Multilevel disc desiccation. Specific findings are seen at the following levels: T12-L1:No significant spinal canal stenosis or neural foraminal narrowing on sagittal view. L1-L2:Mild diffuse disc bulge with facet arthropathy which effaces the ventral thecal sac without significant spinal canal stenosis. Mild to moderate bilateral neural foraminal narrowing; similar to prior. L2-L3:Uncovering of the disc with ligamentum flavum infolding and facet arthropathy which results in moderate spinal canal stenosis; progressed from prior with moderate bilateral neural foraminal narrowing (right greater than left); progressed from prior. L3-L4:Diffuse disc bulge with ligamentum flavum infolding and facet arthropathy which results in moderate spinal canal stenosis; similar to prior. Moderate right and mild left neural foraminal narrowing; similar to prior. L4-L5:Diffuse disc bulge with bilateral facet arthropathy which results in severe spinal canal stenosis; progressed from prior. There is moderate to severe bilateral neural foraminal narrowing; progressed from prior. L5-S1:Uncovering of the disc with diffuse disc bulge and severe bilateral facet arthropathy which results in moderate to severe left neural foraminal narrowing; progressed from prior. Miscellaneous: Visualized SI joints, paraspinal muscles and retroperitoneum are unremarkable. Procedure Note Kamilla Driver MD - 04/09/2025 INDICATION: Radiculopathy, spinal stenosis COMPARISON: June 2024 TECHNIQUE: Multiplanar, multisequence MRI was performed of the lumbarspine without IV contrast. FINDINGS: Study assumes 5 lumbar type vertebral bodies. Left convex lumbarscoliosis. Vertebral body heights are maintained. Minimal grade 1retrolisthesis of L1 on L2, L2 on L3, new from 2023 and anterolisthesis ofL5 on S1, similar to prior. Conus terminates at L1. Bone marrow signalis heterogeneous with Modic type I changes at L2-L3, L3-L4 and L4-L5.Multilevel anterior marginal osteophytes. Multilevel disc desiccation.Specific findings are seen at the following levels: T12-L1:No significant spinal canal stenosis or neural foraminal narrowingon sagittal view. L1-L2:Mild diffuse disc bulge with facet arthropathy which effaces theventral thecal sac without significant spinal canal stenosis. Mild tomoderate bilateral neural foraminal narrowing; similar to prior. L2-L3:Uncovering of the disc with ligamentum flavum infolding and facetarthropathy which results in moderate spinal canal stenosis; progressedfrom prior with moderate bilateral neural foraminal narrowing (rightgreater than left); progressed from prior. L3-L4:Diffuse disc bulge with ligamentum flavum infolding and facetarthropathy which results in moderate spinal canal stenosis; similar toprior. Moderate right and mild left neural foraminal narrowing; similarto prior. L4-L5:Diffuse disc bulge with bilateral facet arthropathy which results insevere spinal canal stenosis; progressed from prior. There is moderate tosevere bilateral neural foraminal narrowing; progressed from prior. L5-S1:Uncovering of the disc with diffuse disc bulge and severe bilateralfacet arthropathy which results in moderate to severe left neuralforaminal narrowing; progressed from prior. Miscellaneous: Visualized SI joints, paraspinal muscles andretroperitoneum are unremarkable. IMPRESSION: Multilevel lumbar spondylosis, progressed from prior at L2-L3, L4-L5 andL5-S1. -------- FINAL REPORT -------- Dictated By: Kamilla Driver Dictated Date: 04/09/2025 03:49 ET Assigned Physician: Kamilla Driver Reviewed and Electronically Signed By: Kamilla Driver Signed Date: 04/09/2025 03:58 ET Workstation ID: [id number] Transcribed By: Self Edit Transcribed Date: 04/09/2025 03:49 ET us Cain Upton DO G MRI PROCEDURES Final Result * Depression Screening (02/26/2024) Depression Screening Abstracted us Historical Provider HEALTH MAINTENANCE Final Result * DXA BONE DENSITY STUDY 1+ SITS AXIAL SKEL (07/12/2023 3:15 PM EST) Anatomical Region Laterality Modality Bone Densitometr y 01/19/2023 2:06 PM EDT Narrative 07/12/2023 3:48 PM EST BONE DENSITY Lumbar Spine T-score is -0.7 (SD relative to 20-29 y/o adult) Z-score is +1.6 (SD relative to age matched peers) This is normal by criteria defined by the WHO. Left Hip T-score is -2.5 Z-score is -0.5 This is consistent with osteoporosis by criteria defined by the WHO. Comparison exam(s): no statistically significant change in the bone density of the hip when compared to most recent bone density examination and significant decrease in bone density of hip when compared to most recent bone density examination Confidence level is +/-95%. Impression: Based on the World Health Organization criteria, Nadine Calle should be classified as having osteoporosis. The [facility] Department of Internal Medicine recommends using National Osteoporosis Foundation (NOF) guidelines in treatment decisions related to osteoporosis. NOF guidelines suggest considering treatment for postmenopausal women and men aged 50 or older presenting with the following: History of hip or vertebral fracture. T-score less than or equal to -2.5 (DXA) at the femoral neck, total hip, or spine, after appropriate evaluation to exclude secondary causes. Low bone mass (T-score between -1.0 and -2.5 at the femoral neck or spine) AND a 10-year probability of a hip fracture greater than or equal to 3% OR a 10-year probability of a major osteoporosis-related fracture greater than or equal to 20% based on the [place]-adapted WHO algorithm Please note that all treatment decisions require clinical judgment and consideration of individual patient factors, including patient preferences, co-morbidities, previous drug use, risk factors not captured in the FRAX model (e.g., frailty, falls, vitamin D deficiency, increased bone turnover, interval significant decline in bone density) and possible under- or over-estimation of fracture risk by FRAX. Procedure Note Quoc Brito MD - 09/05/2023 BONE DENSITY Lumbar Spine T-score is -0.7 (SD relative to 20-29 y/o adult) Z-score is +1.6 (SD relative to age matched peers) This is normal by criteria defined by the WHO. Left Hip T-score is -2.5 Z-score is -0.5 This is consistent with osteoporosis by criteria defined by the WHO. Comparison exam(s): no statistically significant change in the bonedensity of the hip when compared to most recent bone density examinationand significant decrease in bone density of hip when compared to mostrecent bone density examination Confidence level is +/-95%. Impression: Based on the World Health Organization criteria, Nadine Calle should beclassified as having osteoporosis. The [facility] Department of Internal Medicine recommendsusing National Osteoporosis Foundation (NOF) guidelines in treatmentdecisions related to osteoporosis. NOF guidelines suggest consideringtreatment for postmenopausal women and men aged 50 or older presentingwith the following: History of hip or vertebral fracture. T-score less than or equal to -2.5 (DXA) at the femoral neck, total hip,or spine, after appropriate evaluation to exclude secondary causes. Low bone mass (T-score between -1.0 and -2.5 at the femoral neck or spine)AND a 10-year probability of a hip fracture greater than or equal to 3% ORa 10-year probability of a major osteoporosis-related fracture greaterthan or equal to 20% based on the [place]-adapted WHO algorithm Please note that all treatment decisions require clinical judgment andconsideration of individual patient factors, including patientpreferences, co-morbidities, previous drug use, risk factors not capturedin the FRAX model (e.g., frailty, falls, vitamin D deficiency, increasedbone turnover, interval significant decline in bone density) and possibleunder- or over-estimation of fracture risk by FRAX. Gerard CONTRERAS IMMaria Antonia DXA PROCEDURES Final Resul t * SCR MAMMO BI INCL CAD (11/18/2020 2:21 PM EDT) Anatomical Region Laterality Modality Radiographic Mouna ging 09/18/2020 4:07 PM EST Narrative 11/19/2020 9:02 AM EDT This is a summary report. The complete report is available in the patient's medical record. If you cannot access the medical record, please contact the sending organization for a detailed fax or copy. Full field digital screening mammography, reviewed with CAD and compared to previous. The breasts are composed of fatty and fibroglandular tissue. No suspicious mass, architectural distortion or suspicious calcifications are identified. IMPRESSION: : No mammographic evidence of malignancy. BIRADS 1-Negative; N. 5 year breast cancer risk assessment 1.9 % Lifetime breast cancer risk assessment 5.6 % Breast cancer risk category Low (<15%) Procedure Note Quoc Brito MD - 07/19/2022 This is a summary report. The complete report is available in thepatient's medical record. If you cannot access the medical record, pleasecontact the sending organization for a detailed fax or copy. Full field digital screening mammography, reviewed with CAD and comparedto previous. The breasts are composed of fatty and fibroglandular tissue.No suspicious mass, architectural distortion or suspicious calcificationsare identified. IMPRESSION: : No mammographic evidence of malignancy. BIRADS 1-Negative; N. 5 year breast cancer risk assessment 1.9 % Lifetime breast cancer risk assessment 5.6 % Breast cancer risk category Low (<15%) Kenzie Leyva MD IMG XR PROCEDURES Final Result * Lipid panel (03/09/2020) [facility] [address] LDL/HDL Ratio 2 0 - 4 Triglycerides 77 0 - 150 mg/dL Cholesterol 183 0 - 200 mg/dL HDL 78 >=40 mg/dL LDL Cholesterol 90 0 - 100 mg/dL Blood Venous blood specimen / Unknown Historical Provider LAB BLOOD ORDERABLES Rosa l Result * Colonoscopy (11/03/2015) [facility] Colonoscopy No interpretation , Abstracted Anatomical Region Laterality Modality Other Historical Provider HEALTH MAINTENANCE Final Result * Hepatitis C Screening (09/22/2015) [facility] Hepatitis C Screening Abstracted Historical Provider HEALTH MAINTENANCE Final Result from Last 3 Months or Most Recently Relevant to Health Maintenance Insurance MEDICARE [facility] Care Teams Chain Sales Consultant Relationship Specialty Start Date End Date Margaret Huerta MD [address] [place] [id number] PCP - General Internal Medicine 07/18/24
--- OUTSIDE RECORDS SUMMARY | 2025-05-23 12:28 | XMS_ITS | Encounter Summary ---
Author Organization [facility] [place] [address] Care Team Providers Care Linotypist Name Role Phone Margaret Huerta MD Primary Care Prov ider Encounter Details Date Type Department Care Team (Late st Contact Info) Description 08/29/2024 Lab Requisition [facility] - Main Lab [address] [facility] [place] [address] Eliseo Yap PA [address] [facility] [address] [place] [address] Urgency of urination Social History Tobacco Use Types Packs/Day Years Used Date Smoking Tobacco: Never Smokeless Tobacco: Never Alcohol Use Standard Drinks/Week Comments Not Currently 0 (1 standard drink = 0.6 oz pur e alcohol) Interpersonal Safety Answer Date Record ed Physical Abuse Unrecognized value 07/23/2024 Verbal Abuse Unrecognized value 07/23/2024 Comments No Sex and Gender Information Value Date Recorded Sex Assigned at Female 07/18/2024 11:25 AM EST Legal Sex Female 10:21 AM EST Gender Identity Female 07/18/2024 11:25 AM EST Sexual Orientation Straight 07/18/2024 11 :25 AM EST documented as of this encounter Plan of Treatment Not on file documented as of this encounter Procedures Procedure Name Priority Date/Time Associated Diagnosis Comments BACTERIAL IDENTIFICATION AND SUSCEPTIBILITY, AEROBIC Routine 08/28/2024 12:00 AM EST Urgency of urination documented in this encounter Results * (ABNORMAL) Bacterial identification and susceptibility, aerobic (08/28/2024 12:00 AM EST) Culture, Bacterial ID and Sensitivity Staphylococcus epidermidis(A) GENNY 08/30/2024 8:55 AM EST [facility] Comment: Edited result: Previously reported as Gram Positive Cocci on 08/29/2024 at 1419 EST. Other Urine specimen from urethra / Unknown 08/28/2024 08/29/2024 1:06 PM EST Narrative Organism Antibiotic Method Susceptibility Staphylococcus epidermidis Benzylpenicillin GENNY >=0.5 ug/ml: Resistant Staphylococcus epidermidis Oxacillin GENNY <=0.25 ug/ml: Susceptible Staphylococcus epidermidis Gentamicin GENNY <=0.5 ug/ml: Susceptible Staphylococcus epidermidis Ciprofloxacin GENNY 1 ug/ml: Susceptible Staphylococcus epidermidis Levofloxacin GENNY 1 ug/ml: Susceptible Staphylococcus epidermidis Quinupristin/Dalfopristin M IC <=0.25 ug/ml: Susceptible Staphylococcus epidermidis Linezolid GENNY 1 ug/ml: Susceptible Staphylococcus epidermidis Vancomycin GENNY 1 ug/ml: Susceptible Staphylococcus epidermidis Tetracycline GENNY >=16 ug/ml: Resistant Staphylococcus epidermidis Nitrofurantoin GENNY <=16 ug/ml: Susceptible Staphylococcus epidermidis Rifampin GENNY <=0.5 ug/ml: Susceptible us El[facility] MICROBIOLOGY - GENERAL ORDER MIKE Final Result [facility] [address] [place] [address], documented in this encounter Visit Diagnoses Diagnosis Urgency of urination documented in this encounter Care Teams Linotypist Relationship Specialty Start Date End Date Margaret Huerta MD [address] [place] [id number] PCP - General Internal Medicine 07/18/24 documented as of this encounter
--- OUTSIDE RECORDS SUMMARY | 2025-05-23 12:28 | XMS_ITS | Encounter Summary ---
Author Organization [facility] [place] [address] Care Team Providers Care Private Sector Executive Name Role Phone Margaret Huerta MD Primary Care Prov ider Reason for Visit * Reason Onset Date Comments FYI for Doctor 04/25/2025 Encounter Details Date Type Department Care Team (Late st Contact Info) Description 04/25/2025 Telephone Adult Medicine - [place] [address] [place] [address] Margaret Huerta MD [address] [place], [place] [id number] Social History Tobacco Use Types Packs/Day Years [...] for your loved ones. For example, child protection specialist or elderly care for an older adult? [...] AM EST documented as of this encounter Progress Notes * Radha Bob - 04/25/2025 2:53 PM EDT FYI for Doctor-Patient would like to thank you very much. You referred her to [facility]. She is going to have the surgery in Mid April and wanted you to know that the PA who took care of her was very thorough, so kind and made her feel very relaxed about everything. She is very appreciative. documented in this encounter Plan of Treatment Not on file documented as of this encounter Visit Diagnoses Not on filedocumented in this encounter Additional Health Concerns Assessment Noted Time PHQ-9 Depression Total Score: 0 12/10/19 25 6:14 PM EDT documented as of this encounter Care Teams Private Sector Executive Relationship Specialty Start Date End Date Margaret Huerta MD [address] [place] [id number] PCP - General Internal Medicine 07/18/24 documented as of this encounter
--- OUTSIDE RECORDS SUMMARY | 2025-05-23 12:28 | XMS_ITS | Clinical Summary ---
Author Organization [facility] Address [address] [place] [address] Care Team Providers Care Lens Molder Name Role Phone Margaret Huerta MD Primary Care Pr ovider Allergies No known active allergies Medications PANTOprazole (PROTONIX) 40 MG EC tablet Active senna (Senna-Time) 8.6 MG Tab tablet Take 1 tablet by mouth 2 times a day. Active OMEprazole (PriLOSEC) 20 MG capsule Take 1 capsule by mouth daily. 04/09/2024 Active citalopram (CeleXA) 40 MG tablet 06/21/2023 Active cholecalciferol (D3-50) 68644 units capsule Take 50,000 Units by mouth. Active cyanocobalamin (VITAMIN B-12) 1000 MCG/ML injection Inject 1,000 mcg into the shoulder, thigh, or buttocks. 01/29/2024 Active calcium carbonate (CALTRATE) 1500 (600 Ca) MG tablet Take 1 tablet by mouth 2 times a day. 07/14/2023 Active Active Problems No known active problems Social History Tobacco Use Types Packs/Day Years Used Date Smoking Tobacco: Never Assessed Comments Unknown Sex and Gender Information Value Date Recorded Sex Assigned at Female 07/03/2024 11:53 AM EST Legal Sex Female 4:36 PM EDT Gender Identity Female 07/03/2024 11:53 AM EST Sexual Orientation Heterosexual (straight) 07/03 11:53 AM EST Last Filed Vital Signs Vital Sign Reading Time Taken Comments Blood Pressure 144/98 08/08/2024 3:34 PM EST Pulse 69 08/08/2024 3:34 PM EST Temperature 36.7 C (98.1 F) 08/08/2024 3:34 PM EST Respiratory Rate - - Oxygen Saturation 96% 08/08/2024 3:34 PM EST Inhaled Oxygen Concentration - - Weight - - Height - - Body Mass Index - - Plan of Treatment Health Maintenance Due Date Last Done Comments Advance Care Planning 1950 Hepatitis C Virus Screening 1950 DTaP/Tdap/Td Vaccines (1 - Tdap) 1969 Mammogram 1990 Colonoscopy 1995 Pneumococcal Vaccines 50+ (1 of 1 - PCV) 2000 Zoster (Shingles) Vaccine (1 of 2) 2000 DXA Bone Density (Females,Ages 65 and older) 2015 Influenza Vaccine 02/28/2025 06/21/2023, , 06/14/2021, Additional history exists COVID-19 Vaccine (2024- season) 2025 06/14/2021, 10/14/2020, 09/16/2020 RSV Vaccine 50 years and older and Patients (1 - 1-dose 75+ series) 2025 Hepatitis B Vaccines Aged Out No long er eligible based on patient's age to complete this topic Insurance MEDICARE [place] [id number] MEDICARE [place] [id number] Care Teams Lens Molder Relationship Specialty Start Date End Date Margaret Huerta MD PCP - General
[2025-06-10 12:37] VITALS: BP 164/80; PULSE 72; RESP 16; O2SAT 95; BMI 28.9
--- NOTE | 2025-06-10 12:58 | HO.ANESPROP2 ---
Documented by User: Zoie Ugarte NP 06/16/25 12:56 HPI - Anesthesia Eval Consult details Narrative: 75yo F for L4-5 Lumbar Decompression, 06/19/25 Naturally red head [facility] admit 03/2025 for new BPV (benign positional vertigo) - no meds, physical therapy exercises helps. Encouraged hydration day before surgery - aware of risk surrounding periop home TREY: dental device Rare prn opiates Anesthesia Pre-Procedure Meds Is the patient on any of the following meds?: GLP1/DPP4 PMFSH Active Problems Active Problems: All Active Problems Lumbar stenosis (Acute) Past Medical History Medical History Arthritis Overactive bladder Habitual snoring Degeneration of lumbar intervertebral disc Sleep apnea Osteopenia Diverticulitis Urinary incontinence TIA (transient ischemic attack) Obesity (BMI 30-39.9) Heartburn COVID-19 Insomnia Vertigo Anxiety Depression Benign paroxysmal positional vertigo Family History Family history of problems with anesthesia: No Surgical History Surgical History (Updated 06/10/25 @ 12:30 by Toshia Chiu RN) Hx of tonsillectomy History of total left knee replacement (~02/2022) H/O colonoscopy Hx of cataract extraction History of Problems with Anesthesia: No Social History Social History Are you a primary gericare aide teacher to a significant other at home: No Do you presently have visiting nurse or other home services: No Patient Tobacco Use Status: Never used Tobacco Meds Allergies Allergy/AdvReac Type Severity Reaction Status Date / Time tolterodine Allergy Unknown Verified 06/11/25 15:00 zolpidem Allergy Unknown Verified 06/11/25 15:00 Home Medications ?Medication ?Instructions ?Recorded ?Confirmed ?Last Taken ?Type calcium carbonate 600 mg PO BID 06/09/25 06/09/25 Unknown History celecoxib 200 mg capsule 200 mg PO DAILY 06/09/25 06/10/25 Unknown History cyanocobalamin (vitamin B-12) 1,000 mcg IM QMONTH 06/09/25 06/10/25 Unknown History 1,000 mcg/mL injection solution omeprazole 20 mg capsule,delayed 20 mg PO DAILY 06/09/25 06/10/25 Unknown History release ondansetron HCl 4 mg tablet 4 mg PO Q8H PRN nausea/vomiting 06/09/25 06/10/25 Unknown History semaglutide 0.25 mg or 0.5 mg (2 0.25 mg subcut QWEEK 06/09/25 06/10/25 Unknown History mg/3 mL) subcutaneous pen injector cholecalciferol (vitamin D3) 25 25 mcg PO DAILY 06/10/25 06/10/25 Unknown History mcg (1,000 unit) capsule (Vitamin D3) zoledronic acid 5 mg/100 mL in ea IV [id number] 06/10/25 Unknown History mannitol 5 %-water intravenous piggybck (Reclast) Exam Height,Weight and Vital Signs: Height 5 ft 3 in Weight 73.936 kg Last Vital Signs Pulse 72 06/10/25 12:37 Resp 16 06/10/25 12:37 BP 164/80 H 06/10/25 12:37 Pulse Ox 95 06/10/25 12:37 O2 Del Method Room Air 06/10/25 12:37 Pertinent Lab Results Pertinent Lab Results: Narrative Narrative: EKG 03/2025 Ventricular Rate: 77 BPM Atrial Rate: 77 BPM P-R Interval: 108 ms QRS Duration: 82 ms Q-T Interval: 390 ms QTC Calculation(Bazett): 441 ms P [place]: 35 degrees R [place]: -26 degrees T [place]: -3 degrees Sinus rhythm with short [place] ST and T wave abnormality, consider anterior ischemia Abnormal ECG When compared with ECG of 27-Mar-2025 14:05, No significant change was found Confirmed by EDILBERTO DAVID, [facility] ([id number]) on 04/01/2025 8:31:11 AM ECHO 03/2025 Summary The right ventricle is normal in size and function. The left ventricular size is normal. Left ventricular wall thickness is normal. The LV systolic function is normal . The left ventricular ejection fraction is 60-65 %. There are no regional wall motion abnormalities. Grade I, mild diastolic dysfunction with impaired LV relaxation, which may be normal for the patient's age. Airway Mallampati Class: II TM Dist: >3cm Neck ROM: Full (some OA) Loose/Missing/Broken Teeth: No (2 x implants, crowns - all stable) Heart: RRR Lungs: CTAB Assessment and Plan Assessment Anesthesia Assessment: Anesthesia Plan Discussed and PAT Visit Final Anesthetic Review Family History of Problems with Anesthesia: No History of Problems with Anesthesia: No Documented by User: Faith Roman MD 06/18/25 16:35 [facility] Past Medical History Medical History Arthritis Overactive bladder Habitual snoring Degeneration of lumbar intervertebral disc Sleep apnea Osteopenia Diverticulitis Urinary incontinence TIA (transient ischemic attack) Obesity (BMI 30-39.9) Heartburn COVID-19 Insomnia Vertigo Anxiety Depression Benign paroxysmal positional vertigo Surgical History Surgical History (Updated 06/10/25 @ 12:30 by Toshia Chiu RN) Hx of tonsillectomy History of total left knee replacement (~02/2022) H/O colonoscopy Hx of cataract extraction Social History Social History Are you a primary gericare aide teacher to a significant other at home: No Do you presently have visiting nurse or other home services: No Patient Tobacco Use Status: Never used Tobacco Meds Allergies Allergy/AdvReac Type Severity Reaction Status Date / Time tolterodine Allergy Unknown Verified 06/11/25 15:00 zolpidem Allergy Unknown Verified 06/11/25 15:00 Home Medications ?Medication ?Instructions ?Recorded ?Confirmed ?Last Taken ?Type calcium carbonate 600 mg PO BID 06/09/25 06/09/25 Unknown History celecoxib 200 mg capsule 200 mg PO DAILY 06/09/25 06/10/25 Unknown History cyanocobalamin (vitamin B-12) 1,000 mcg IM QMONTH 06/09/25 06/10/25 Unknown History 1,000 mcg/mL injection solution omeprazole 20 mg capsule,delayed 20 mg PO DAILY 06/09/25 06/10/25 Unknown History release ondansetron HCl 4 mg tablet 4 mg PO Q8H PRN nausea/vomiting 06/09/25 06/10/25 Unknown History semaglutide 0.25 mg or 0.5 mg (2 0.25 mg subcut QWEEK 06/09/25 06/10/25 Unknown History mg/3 mL) subcutaneous pen injector cholecalciferol (vitamin D3) 25 25 mcg PO DAILY 06/10/25 06/10/25 Unknown History mcg (1,000 unit) capsule (Vitamin D3) zoledronic acid 5 mg/100 mL in ea IV [id number] 06/10/25 Unknown History mannitol 5 %-water intravenous piggybck (Reclast) Assessment and Plan Assessment Anesthesia Assessment: Chart Reviewed Final Anesthetic Review NPO: Yes ASA Class: II Final Preanesthetic Review: No Changes in Pt Med Stat, Meds/Allgs Chart Reviewed, Consent Obtained/Reviewed and Anes Risks/Benef Reviewed Patient Risk: Intermediate Procedure Risk: Low Anesthetic Plan Anesthetic Plan: MAC: Disposition: Standard PACU
--- NOTE | 2025-06-17 15:02 | P.DS_ITS ---
DS: Providers Provider Date of Service: 06/19/25 Date of discharge: 06/19/25 Primary care physician: Margaret Huerta MD Admitting clinician: Kelvin King DS: Diagnosis Discharge Diagnosis (1) Lumbar stenosis: Status: Acute DS: Summary Time Attestation Discharge Coordination Time (in mins): 5 Quality: Safe Use of Opioids Does Pt have an Active Cancer Diagnosis on the Problem List?: No Quality: Stroke Does the patient have a stroke diagnosis?: No Physical Exam Vital Signs: Vital Signs: Last Vital Signs Pulse 72 06/10/25 12:37 Resp 16 06/10/25 12:37 BP 164/80 H 06/10/25 12:37 Pulse Ox 95 06/10/25 12:37 O2 Del Method Room Air 06/10/25 12:37 BMI result Body Mass Index 28.9 Discharge Plan Discharge Patient Disposition: Home, Self-Care Referrals: Margaret Huerta MD [Primary Care Provider, Internal Medicine] - 1 Week Discharge Medications: New oxycodone 5 mg tablet 5 mg PO Q6-8H PRN (Reason: pain) Qty: 20 0RF Rx Instructions: Partial Fill upon patient request. docusate sodium [Colace] 100 mg capsule 100 mg PO BID Qty: 20 0RF Continued cyanocobalamin (vitamin B-12) 1,000 mcg/mL Solution 1,000 mcg IM QMONTH celecoxib 200 mg capsule 200 mg PO DAILY ondansetron HCl 4 mg tablet 4 mg PO Q8H PRN (Reason: nausea/vomiting) calcium carbonate 600 mg calcium (1,500 mg) tablet 600 mg PO BID omeprazole 20 mg capsule,delayed release(DR/EC) 20 mg PO DAILY semaglutide 0.25 mg or 0.5 mg (2 mg/3 mL) Pen Injector 0.25 mg SUBCUT QWEEK Patient Comments: patient takes every Monday Rx Instructions: for 4 weeks cholecalciferol (vitamin D3) [Vitamin D3] 25 mcg (1,000 unit) Capsule 25 mcg PO DAILY zoledronic zlcr-jzudnhof-zkxai [Reclast] 5 mg/100 mL Piggyback IV [id number] Discontinued oxycodone-acetaminophen 5-325 mg tablet 1 tab PO QID PRN (Reason: Pain) Discharge Orders: Discharge Order (Routine); Ordered 06/19/25 Ordered By: Gerard Stein Diet: Advance to usual diet Activity on Discharge: As tolerated Activity Restrictions/Additional Instructions: After your spinal surgery we ask you to observe the following restrictions/guidelines: Activity: It is normal to feel some discomfort as you increase your activity, but that will improve with time. We ask you avoid heavy lifting or acitivities that cause pain. As a general rule, 8lbs is a safe limit for lifting right after surgery. Walk as much as you feel comfortable but not to exhaustion. You will feel extra tired the first few days after surgery. Stay well hydrated. It is OK to walk up and down stairs You may return to driving when you are off narcotics (such as vicodin, oxycodone, dilaudid, etc), and you are back to normal functional capacity. If you have any concerns please check with office before driving. Return to work is specific to each patient and each surgery, so please speak with your doctor/PA at first follow up. Please bring paperwork such as FMLA at that time if you need it filled out. Medications: For optimum pain control, it is best to start with a combination of 500 mg of Tylenol every 4 hours with 600 mg of Motrin every 8 hours, and use narcotics as needed in between for breakthrough pain. We will give you a short supply of narcotics after surgery (usually one weeks worth). If you need more please call the office but do not use more than prescribed. You will need to give our office 48 hours notice if you need narcotics refilled and we do not fill narcotics on weekends or evenings. If you are on a narcotic, it is a good idea to take a stool softener such as colace or senna to avoid constipation If you take blood thinner such as aspirin, Plavix, Coumadin, Effient, Eliquis etc for conditions such as Afib, DVT, Pulmonary embolus, coronary disease, stents etc please speak with your surgeon about specific details as to when you can resume these medications. Follow up: Please call the office, , after surgery to arrange a 3 week follow up for wound check. Wound Care: You may remove your dressing on the first day after surgery. ?You may ?leave open to air. Please do not remove the steri strips underneath. they will fall off on their own in one week. IT IS NORMAL FOR THE WOUND TO OOZE OR BE BLOODY FOR A FEW DAYS AFTER SURGERY. ?IF THIS HAPPENS JUST PLACE NEW DRESSING OVER IT TO AVOID STAINING CLOTHES. You may shower on post op day # 1 We ask that you do not let the water soak the wound. If it does get wet, just towel dry lightly. Please do not scrub your incision or place any type of chemical/ointment on the wound. No tub baths, pools or jacuzzis for one month. If you have any leaking or redness from your wound, or fevers, please call office Print Language: Portuguese
[2025-06-19] VITALS (9 sets, daily range): BP systolic 140–162; BP diastolic 65–87; PULSE 66–80; RESP 12–18; TEMP 36.1; O2SAT 94–100; BMI 28.2
--- NOTE | ~2025-06-19 | FL_ITS ---
EXAMINATION: XR FLUOROSCOPY WITH IMAGES CLINICAL INFORMATION: L4-5 decompression COMPARISON: X-ray 04/21/2025 TECHNIQUE: Fluoroscopy time: 5 seconds DAP: 2.5 mGycm2 Images: 1 FINDINGS: Fluoroscopy provided in the operating room. On the single image, there is surgical instrument projected at the level of the L4 vertebral body. FL/FL guidance in OR IMPRESSION: Fluoroscopy provided for surgery. See surgical report for details. Electronically signed by: Tanmay Melendez MD 06/20/2025 12:59 PM [facility]
[2025-06-19] MEDS: Lactated Ringers 1,000 ML 100 ML IVCONT (07:05)
--- NOTE | 2025-06-19 07:05 | MHC.SHP ---
Pre-Procedural Eval Section A - 24 Hr Update-Section A only Date of Service: 06/19/25 The patient is an INPATIENT: No Changes since office visit: No Cold of Flu in the past 2 weeks, No New Medical Problems, No Changes in Medication and No Patient answered all questions The patient has been examined within 24 hours of the surgical procedure. The History & Physical has been completed within 30 days and I have reviewed it.: No Section B - Complete if H&P > 30 days Chief Complaint: Spinal stenosis, lumbar region without neurogenic Allergies: Allergies Allergy/AdvReac Type Severity Reaction Status Date / Time tolterodine Allergy Unknown Verified 06/11/25 15:00 zolpidem Allergy Unknown Verified 06/11/25 15:00 Review of Systems Sugical H&P ROS: Negative: Constitution, Cardiovascular, Respiratory, Neurological, Psychiatric, Hem-Onc, Allergic/Immunologic, Gastrointestinal, Genitourinary, Musculoskeletal, Integumentary, Endocrine and Eyes/Ears/Nose/Throat Exam Surgical H&P Exam: Normal: HEENT, Normal: Heart, Normal: Lungs, Normal: Extremities, Normal: Abdomen, Normal: Skin and Normal: Neurological (awake, alert,oriented x 3 ) Plan Diagnosis/Plan: Unchanged L4-5 decompression Time Spent With Patient Time: Total time managing care of this patient today __5__ minutes.
--- NOTE | 2025-06-19 09:31 | P.OP_ITS ---
Operative Note Operative Note Date of Service: 06/19/25 Narrative: Preoperative Diagnosis: L4-5 spinal stenosis/lateral recess stenosis/neural foraminal stenosis Operation: L4-5 Laminotomy, Partial facetectomy and foraminotomy with use of microscope Consent Informed Consent was obtained for this operation. I have explained the nature, purpose and benefits of the operation. I have discussed the risks and benefit of the operation including possible complications or adverse events with patient/family. Alternative(s) were discussed with the patient with their relative benefits and risks as well as the consequences of not accepting the operation were included in obtaining consent. 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 The patient was offered a decompression. The procedure complications were explained. The patient was consented. The patient was brought to the operating room and endotracheally intubated. The patient was turned in prone position on the Cristiano frame. Prep and drape was done followed by timeout. The Physician child nutrition assistant provided access. A mid lumbar incision was made followed by release of the paravertebral muscle on the right side to expose the L4-5 lamina and facet joints. An intraoperative x-ray was obtained to confirm the correct level. The microscope was brought in. I took over the procedure. The high-speed drill was used to do a L4-5 laminotomy until flavum ligament was reached. A #2 Kerrison was used to expand the laminotomy near flush to the pedicle and to include a partial facetectomy. The flavum ligament was opened and resected with a #3 Kerrison to decompress the underlying thecal sac. The flavum ligament was removed to decompress the lateral recess and the exiting L5 nerve root. The patient was turned contralaterally. A spinous process was undercut and this way I was able to decompress the contralateral side by removing more flavum ligament from the contralateral lateral recess. A long nerve hook could be easily passed along the medial side of the pedicles as a sign of adequate decompression. The microscope was removed. Hemostasis was done. The physician child nutrition assistant close the Incision in 2 layers. Steri-Strips were used to approximate incision. An OpSite with Tegaderm was used to cover the incision. All sponge needle counts were correct. Patient was extubated and transported in stable is to recovery room. Anesthesia: General Estimated Blood Loss (ml): 15 Complications: None Duration of Surgery: Under 60 Minutes Postoperative Plan: Discharge to home
== END 2025-06-19 11:41 | disposition home or self-care (01) ==
LOC: HO.SSS 06:53
PROVIDERS: PCP Internal Medicine; Visit Provider Neurological Surgery
PROC: (CPT 63047; principal; 2025-06-19 08:30)
DX: M48.062 Spinal stenosis, lumbar region with neurogenic claudication (principal); M51.360 Other intervertebral disc degeneration, lumbar region with discogenic back pain only; M81.0 Age-related osteoporosis without current pathological fracture; R26.2 Difficulty in walking, not elsewhere classified; H81.10 Benign paroxysmal vertigo, unspecified ear; Z96.652 Presence of left artificial knee joint; Z86.73 Personal history of transient ischemic attack (TIA), and cerebral infarction without residual deficits; F32.A Depression, unspecified; F41.9 Anxiety disorder, unspecified; G47.33 Obstructive sleep apnea (adult) (pediatric); Z79.899 Other long term (current) drug therapy; Z79.85 Long-term (current) use of injectable non-insulin antidiabetic drugs; Z88.8 Allergy status to other drugs, medicaments and biological substances
CPT/HCPCS: 63047; J0131; J0690; J1100; J1885; J2003; J2250; J2405; J2704; J3010

== ENCOUNTER → 2025-06-19 06:52 | Outpatient (BNV) | payer MEDICARE, SELFPAY | PROVIDERS: PCP Internal Medicine; Visit Provider Neurological Surgery | DX: M48.061 Spinal stenosis, lumbar region without neurogenic claudication (principal) | CPT/HCPCS: 63047; 99499 ==

== ENCOUNTER 2025-07-10 10:30 | Outpatient (AMB) | payer MEDICARE, SELFPAY ==
--- NOTE | 2025-07-10 10:32 | A.SPINEOV_ITS ---
Intake Visit Reasons: 1st post op Intake Note: Mrs. Healy is here today for her 1st post op. Training Assistant Required: No Allergies zolpidem Allergy (Severe, Verified 06/19/25 07:39) Unknown Assessment & Plan Assessment & Plan (1) Status post lumbar spine surgery for decompression of spinal cord: Code(s): Z98.890 - Other specified postprocedural states Category: Surgical Plan Operation: L4-5 Laminotomy, Partial facetectomy and foraminotomy Nadine is a pleasant 75 year old female who comes in today for her 1st postoperative visit after having a above mentioned procedure completed by Dr. King. To recap she was initially evaluated in clinic for lower lumbar sacral pain which radiates out to her hips and down toward her tailbone. This primarily occurred with a positional changes and ambulation. She reports an excellent recovery since her surgery. She states that the pain that was shooting into her tailbone at the base of her spine has essentially resolved. She is able to make positional changes without severe pain. She emphasized how much better she is doing overall, and reported that if this did not work she plan to get on long-term chronic pain management because she could not continue to live the way she is living. She asked several questions regarding the postoperative healing course, all of which I answered to the best of my ability. No new neurological deficits. The patient ambulates well and rises from a seated position without difficulty. Her posterior incision site is closed and well healing. I would like to have Nadine follow up with us again in 6 weeks for his 2nd postoperative visit. Jon King MD,PhD [facility] Coding Level of Care Code Global (22659) Diagnoses Status post lumbar spine surgery for decompression of spinal cord Z98.890
== END 2025-07-10 10:49 | disposition home or self-care (01) ==
LOC: HO.HNS 10:30
PROVIDERS: PCP Internal Medicine; Visit Provider Physician Assistant
DX: Z98.890 Other specified postprocedural states (principal)
CPT/HCPCS: 99024

== ENCOUNTER → 2025-07-10 10:30 | Outpatient (BNVA) | payer MEDICARE, SELFPAY | PROVIDERS: PCP Internal Medicine; Visit Provider Physician Assistant | DX: Z98.890 Other specified postprocedural states (principal) | CPT/HCPCS: 99212 ==